=== PATIENT | female | born 1985 | race Caucasian/White ===

== ENCOUNTER 2017-08-04 10:04 | Emergency (ER) | payer MEDICAID ==
[~2017-08-04] VITALS: Ht 157.5 cm; Wt 90.5 kg
[2017-08-04] MEDS ORDERED: ARIP2 PO (10:23)
[2017-08-04 10:54] VITALS: BP 146/102
[2017-08-04 13:05] LABS: INFLUENZA TYPE B POSITIVE FOR TYPE B (NEGATIVE)
== END 2017-08-04 11:26 | disposition home or self-care (01) ==
LOC: EMS 10:05
DX: J11.1 Influenza due to unidentified influenza virus with other respiratory manifestations (principal); R03.0 Elevated blood-pressure reading, without diagnosis of hypertension; F17.210 Nicotine dependence, cigarettes, uncomplicated
CPT/HCPCS: 87804; 99284

== ENCOUNTER 2017-11-05 19:41 | Emergency (ER) | payer MEDICAID, OTHER ==
[~2017-11-05] VITALS: Ht 157.5 cm; Wt 75.0 kg
[~2017-11-05 19:41] MED LIST: ARIP2 PO
[2017-11-05] MEDS ORDERED: SERT50TA12 PO (19:51)
[2017-11-05] MEDS ORDERED: ACETAMINOPHEN 325 MG TABLET PO ONE (20:00)
[2017-11-05 22:02] VITALS: BP 122/75
== END 2017-11-05 22:10 | disposition home or self-care (01) ==
LOC: EMS 19:44
DX: S00.93XA Contusion of unspecified part of head, initial encounter (principal); M54.2 Cervicalgia; F17.210 Nicotine dependence, cigarettes, uncomplicated; F12.90 Cannabis use, unspecified, uncomplicated; Y04.2XXA Assault by strike against or bumped into by another person, initial encounter; Y93.01 Activity, walking, marching and hiking; Y92.89 Other specified places as the place of occurrence of the external cause; Y99.8 Other external cause status
CPT/HCPCS: 70450; 72125; 99284; 99406